=== PATIENT | female | born 1980 | race Hispanic/Latino ===

== ENCOUNTER 2020-12-29 08:06 | Emergency (ER) | payer SELFPAY ==
[2020-12-29 09:58] LABS: #Eosinphils 0.4 thou/uL (0.0-0.7); #Lymphocytes 2.9 thou/uL (1.20-3.40); #Monocytes 0.3 thou/uL (0.11-0.59); #Neutrophils 5.7 thou/uL (1.40-6.50); %Basophils 0.3 % (0.0-1.0); %Eosinophils 4.7 % (0.0-10.0); %Lymphocytes 30.7 % (21.0-51.0); %Monocytes 3.7 % (0.0-10.0); %Neutrophils 60.7 % (42.0-75.0); Hemoglobin 14.6 g/dL (12.0-16.0); Mean Corpuscular HGB CONC 34.5 g/dL (32.0-36.0); Mean Corpuscular Hemoglobin 31.5 pg (27.0-31.0); Mean Corpuscular Volume 91.3 fL (78.0-98.0); Platelet Count 229 thou/uL (130-400); RBC Distribution Width 12.2 % (11.5-14.5); Red Blood Cell (RBC) Count 4.63 mill/uL (4.20-5.40); White Blood Cell (WBC) Count 9.4 thou/uL (4.8-10.8)
[2020-12-29 10:12] LABS: PTT 24.7 sec (22.9-36.1); Prothrombin Time 12.9 sec (12.0-14.7)
[2020-12-29 10:23] LABS: ALT (SGPT) 31 U/L (8-55); AST (SGOT) 27 U/L (5-34); Albumin 3.9 g/dL (3.5-5.0); Alkaline Phosphatase 84 U/L (40-110); Anion Gap 13 mmol/L (10-20); BUN (Urea Nitrogen) 11 mg/dL (7.0-18.7); Bilirubin, Total 0.4 mg/dL (0.2-1.2); Calc. Creatinine Clearance 0 mL/min (70-130); Calcium 9.2 mg/dL (7.8-10.44); Carbon Dioxide 24 mmol/L (22-29); Chloride 105 mmol/L (98-107); Globulin 3.2 g/dL (2.4-3.5); Glucose 101 mg/dL (70-105); Potassium 4.2 mmol/L (3.5-5.1); Protein, Total 7.1 g/dL (6.0-8.3); Sodium 138 mmol/L (136-145)
== END 2020-12-29 10:43 | disposition home or self-care (01) ==
LOC: ERS 08:06
DX: O20.9 Hemorrhage in early pregnancy, unspecified (principal); O09.521 Supervision of elderly multigravida, first trimester; Z3A.01 Less than 8 weeks gestation of pregnancy
CPT/HCPCS: 36415; 76856; 80053; 84702; 85025; 85610; 85730; 86900; 86901